=== PATIENT | female | born 1955 | race African-American/Black ===

== ENCOUNTER → 2021-11-18 | Outpatient (CLI) | payer OTHER, BC ==
[~2021-11-18] MED LIST: ATIVAN1 MG PO; CEPHALEXIN 500500 M1 PO; DULCOLAX STOOL100 MG PO; MYLANTA 12 OZ355 M1 PO; NAPROSYN500 MG PO; NOHOMEMEDICATIONS; NOLVADEX10 MG PO; NORCO 5-325 TA1 EACH PO; PERCOCET 5-3251 EACH PO; PHENERGAN 25 MG25 M1 PO; VALIUM5 MG PO
== END ==
LOC: SJCVCIMAG 09:08
PROVIDERS: ATTEND Internal Medicine Cardiovascular Disease
DX: R00.0 Tachycardia, unspecified (principal); R07.9 Chest pain, unspecified; I25.10 Atherosclerotic heart disease of native coronary artery without angina pectoris; I25.84 Coronary atherosclerosis due to calcified coronary lesion; I10 Essential (primary) hypertension; E78.00 Pure hypercholesterolemia, unspecified; J44.9 Chronic obstructive pulmonary disease, unspecified; E78.5 Hyperlipidemia, unspecified; Z87.891 Personal history of nicotine dependence; Z72.89 Other problems related to lifestyle; Z79.82 Long term (current) use of aspirin; Z79.899 Other long term (current) drug therapy; Z88.8 Allergy status to other drugs, medicaments and biological substances